=== PATIENT | female | born 1950 | race Caucasian/White ===

== ENCOUNTER 2017-10-01 08:48 | Outpatient (CLI) | payer MEDICARE ==
--- NOTE | 2017-10-01 10:54 | CT ---
CT OF THE HEAD WITHOUT CONTRAST: Date: 10/01/17 COMPARISON: None. HISTORY: Re-evaluate intracranial hemorrhage. History reports subdural hematoma. TECHNIQUE: Serial axial CT imaging is obtained at 4.5 mm intervals from the skull base through the vertex withou t contrast. FINDINGS: The imaged paranasal sinuses and mastoid air cells are well aerated. There is no displaced calvarial fracture. No discrete intracranial hemorrhage, midline shift, or mass effect is noted. IMPRESSION: No intracranial hemorrhage is seen. The history reports prior CT examination demonstrating subdural h emorrhage, but no subdural hematoma is seen on this exam. However, prior imaging is not available. POS: [facility]
== END 2017-10-01 08:49 | disposition home or self-care (01) ==
LOC: TBSIIMAG 08:48
PROVIDERS: ATTEND Surgery
DX: S06.5X0A Traumatic subdural hemorrhage without loss of consciousness, initial encounter (principal)
CPT/HCPCS: 70450

== ENCOUNTER 2019-02-16 15:51 | Outpatient (CLI) | payer MEDICARE ==
--- NOTE | 2019-02-16 18:49 | MRI ---
MRI OF THE LEFT KNEE WITHOUT CONTRAST: 02/16/19 INDICATION: Left knee pain since December 2018. COMPARISON: None. FINDINGS: There is diffuse moderate chondrosis involving the medial femoral tibial and lateral femorotibial com partments. There is a focal 4 x 8 mm full thickness defect involving the lateral femoral condyle. The re is a small subchondral fracture measuring 1.2 cm in length involving the medial tibial plateau wit h surrounding marrow edema. There is a focal full thickness articular cartilage defect of the inferio r lateral patellar facet measuring 3 mm on image 7 of series 3. There is full thickness fissuring of the medial femoral trochlea on image 16 of series 5. There are small marginal osteophytes in all ma reyes compartment. There is a full thickness radial tear involving posterior body of the medial meniscus with medial ext rusion. There is a horizontal tear of the posterior horn of the medial meniscus. There is a horizontally oriented tear involving the body and posterior horn of the lateral meniscus. There is nonvisualization of the ACL. The MCL and PCL are intact. There is a large semimembranosus-me dial gastrocnemius popliteal cyst. IMPRESSION: 1. Chronic ACL tear. 2. Medial and lateral meniscal tears. 3. Subchondral insufficiency fracture of the medial tibial plateau with surrounding marrow edema . 4. Mild osteoarthrosis of the left knee. POS: C
== END 2019-02-16 15:52 | disposition home or self-care (01) ==
LOC: TBSIIMAG 15:51
PROVIDERS: ATTEND Orthopaedic Surgery
DX: M17.12 Unilateral primary osteoarthritis, left knee (principal); S82.142D Displaced bicondylar fracture of left tibia, subsequent encounter for closed fracture with routine healing; S83.512D Sprain of anterior cruciate ligament of left knee, subsequent encounter; S83.242D Other tear of medial meniscus, current injury, left knee, subsequent encounter; S83.282D Other tear of lateral meniscus, current injury, left knee, subsequent encounter